=== PATIENT | female | born 1965 | race Caucasian/White ===

== ENCOUNTER 2017-11-20 10:06 | Observation (INO) ==
[2017-11-20] MEDS ORDERED: Pantoprazole Inj 80 MG in Sodium Chlor 0.9% Inj 100 ML IV.CONT SCH (11:00)
[2017-11-20 11:07] LABS: Baso % (Auto) 0.2 % (0.0-2.0); Hematocrit 44.2 % (35.0-46.0); Hemoglobin 15.1 gm/dL (11.6-15.3); Lymph # (Auto) 1.2 th/mm3 (1.0-4.8); Lymph % (Auto) 8.6 % (9.0-44.0); Mean Corpuscular HGB Conc 34.1 % (32.0-36.0); Mean Corpuscular Hemoglobin 30.6 pg (27.0-34.0); Mean Corpuscular Volume 89.6 fL (80.0-100.0); Mean Platelet Volume 7.9 fL (7.0-11.0); Mono # (Auto) 0.4 th/mm3 (0.0-0.9); Mono % (Auto) 2.4 % (0.0-8.0); Neut # (Auto) 12.8 th/mm3 (1.8-7.7); Neut % (Auto) 88.8 % (16.0-70.0); Platelet Count 300 th/mm3 (150-450); Red Blood Count 4.94 mil/mm3 (4.00-5.30); Red Cell Distribution Width 13.2 % (11.6-17.2); White Blood Count 14.4 th/mm3 (4.0-11.0)
--- NOTE | 2017-11-20 11:19 | ED ---
HPI General Chief Complaint: Abdominal Pain Stated Complaint: vomiting Time Seen by Provider: 11/20/17 11:00 Source: patient Mode of arrival: ambulatory Limitations: no limitations History of Present Illness HPI narrative: 52-year-old female with a history of a gastric ulcer presents emergency department complaining of midepigastric pain that is been present since last night. Says that she has a history of a gastric ulcer and believes this may be related. Says that she went out boating yesterday came home 8 epi BMJ sandwich and then started developing her pain. Says her pain is aching and constant. No palliative or provocative factors. The pain is moderate in severity. Says that she feels like his if something is sitting on her epigastric region. Says she has had chills and subjective fevers. No diarrhea. Initially denied any bloody stools but admits to a small amount of dark red stool while in the ED. She denies chronic medical issues medication use. Says she occasionally drinks alcohol and had 3 beers yesterday. Says he drinks about once a month. Denies tobacco use. She has a history of a hysterectomy 12 years ago where mesh was placed. No other abdominal surgeries. Her last EGD was 5 years ago and this was performed because of "food poisoning ". MD complaint: abdominal pain Onset (ago): day(s) (1) Pain Consistency: constant Location: epigastric Severity: similar to previous episodes Quality: cramping, fullness and other (like someone is sitting on her abdomen) Radiation: none Migration to: no migration Relieving factors: nothing Exacerbating factors: nothing Associated symptoms: nausea, vomiting, fever (subjective), chills and hematemesis Related Data Home Medications Medication Instructions Recorded Confirmed No Known Home Medications 11/20/17 11/20/17 Allergies Allergy/AdvReac Type Severity Reaction Status Date / Time hydrocodone AdvReac Intermediate Nausea/Vomi Verified 11/20/17 10:43 ting Review of Systems Except as stated in HPI: all other systems reviewed are negative [facility] Medical History Medical History Esophageal bleed, non-variceal (Acute) H/O: hysterectomy (Acute) Social History Social History Substance History: Active Abuse Smoking Status: Former smoker How Often Do You Have a Drink Containing Alcohol: 2 to 4 times a month Recent Travel in [facility] within the Last 8 Weeks: No Recent Out of Country Travel within the Last 8 Weeks: No Immunization History Tetanus Immunization: Unsure Hx Influenza Vaccine This Season: No Exam Narrative Exam Narrative: GENERAL: Well-developed, well-nourished in mild distress, writhing in bed SKIN: Focused skin assessment warm/dry. HEAD: Atraumatic. Normocephalic. EYES: Pupils equal and round. No scleral icterus. No injection or drainage. ENT: No nasal bleeding or discharge. Mucous membranes pink and moist. NECK: Trachea midline. No JVD. CARDIOVASCULAR: Regular rate and rhythm. No murmur appreciated. RESPIRATORY: No accessory muscle use. Clear to auscultation. Breath sounds equal bilaterally. GASTROINTESTINAL: Abdomen soft, mildly tender in the epigastric region, nondistended. Hepatic and splenic margins not palpable. Rectal exam performed in the presence of nurse Casper-no obvious stool in the rectal vault. Hemoccult negative but scant stool poor MUSCULOSKELETAL: No obvious deformities. No clubbing. No cyanosis. No edema. NEUROLOGICAL: Awake and alert. No obvious cranial nerve deficits. Motor grossly within normal limits. Normal speech. PSYCHIATRIC: Appropriate mood and affect; insight and judgment normal. GI Rectal Exam: visual inspection normal, normal sphincter tone and heme negative stool (Poor sample) Course Initial Documented Vital Signs Temperature 97.7 F 11/20/17 10:18 Pulse Rate 72 11/20/17 10:18 Respiratory Rate 17 11/20/17 10:18 Blood Pressure 171/78 H 11/20/17 10:18 Pulse Oximetry 100 11/20/17 10:18 Last Documented Vital Signs Temperature 97.7 F 11/20/17 10:18 Pulse Rate 75 11/20/17 10:44 Respiratory Rate 20 11/20/17 10:44 Blood Pressure 188/98 H 11/20/17 10:44 Pulse Oximetry 100 11/20/17 10:46 Medical Decision Making MDM Narrative Medical decision making narrative: 52-year-old female presents emergency department for evaluation of nausea, vomiting, dark red stool per rectum, and abdominal pain since yesterday. Says that she has a history of gastric ulcer and her last EGD was 5 years ago. Says this is performed secondary to "food poisoning". Patient says she has had subjective fevers and chills. Says in the previous times when she has had some mild abdominal pain she takes Tums and the pain is resolved. She takes no medication regularly. She denies chest pain , shortness of breath, back pain. She denies diarrhea or constipation. Says she has had some obstipation. Patient takes no blood thinners. Her vital signs are stable. Patient is afebrile. The exam findings demonstrate mild tenderness to the epigastric region without rebound tenderness. Patient writhing in bed upon questioning evaluation. She demonstrates nausea with vomiting bright red blood. Hemoccult negative although scant stool and poor sample. I could not appreciate any active external hemorrhoids. Protonix, GI cocktail, morphine, Zofran administered. Her labs are stable at this time. Patient has mild leukocytosis likely secondary to vomiting. Mild hypokalemia at 3.2, 30meQ KCL IV ordered. Based off a history of physical and difficulty controlling patient's pain, will admit patient for observation. Consider GI consult for possible EGD or further evaluation. I spoke to Dr. Schumacher who agreed to the admission. Differential Diagnosis Differential Diagnosis: Gastritis, gastroenteritis, bleeding ulcer, duodenal ulcer Lab Data Result diagrams: 11/20/17 10:48 11/20/17 10:48 Lab Results 11/20/17 11/20/17 11/20/17 Range/Units 10:48 10:48 10:48 WBC 14.4 H (4.0-11.0) th/mm3 RBC 4.94 (4.00-5.30) mil/mm3 Hgb 15.1 (11.6-15.3) gm/dL Hct 44.2 (35.0-46.0) % MCV 89.6 (80.0-100.0) fL MCH 30.6 (27.0-34.0) pg MCHC 34.1 (32.0-36.0) % RDW 13.2 (11.6-17.2) % Plt Count 300 (150-450) th/mm3 MPV 7.9 (7.0-11.0) fL Neut % (Auto) 88.8 H (16.0-70.0) % Lymph % (Auto) 8.6 L (9.0-44.0) % [place] % (Auto) 2.4 (0.0-8.0) % Eos % (Auto) 0.0 (0.0-4.0) % Baso % (Auto) 0.2 (0.0-2.0) % Neut # (Auto) 12.8 H (1.8-7.7) th/mm3 Lymph # (Auto) 1.2 (1.0-4.8) th/mm3 [place] # (Auto) 0.4 (0.0-0.9) th/mm3 Eos # (Auto) 0.0 (0.0-0.4) th/mm3 Baso # (Auto) 0.0 (0.0-0.2) th/mm3 WBC Differential . Differential Comment Auto diff final PT 10.5 (9.8-11.6) sec INR 1.0 Ratio APTT 18.8 L (24.3-30.1) sec Sodium 142 (136-145) meq/L Potassium 3.2 L (3.5-5.1) meq/L Chloride 105 (98-107) meq/L Carbon Dioxide 19.3 L (21.0-32.0) meq/L Anion Gap 18 H (5-15) meq/L BUN 13 (7-18) mg/dL Creatinine 0.81 (0.50-1.00) mg/dL Estimated GFR 74 L (>89) mL/min Random Glucose 172 H (74-106) mg/dL Calcium 9.8 (8.5-10.1) mg/dL Magnesium 1.7 (1.5-2.5) mg/dL Total Bilirubin 1.0 (0.2-1.0) mg/dL AST 24 (15-37) U/L ALT 37 (10-53) U/L Alkaline Phosphatase 110 (45-117) U/L Total Protein 7.4 (6.4-8.2) g/dL Albumin 4.2 (3.4-5.0) g/dL Lipase 86 (73-393) U/L Serum Alcohol Less than 3 (0-5) mg/dL Blood Type Antibody Screen 11/20/17 Range/Units 10:48 WBC (4.0-11.0) th/mm3 RBC (4.00-5.30) mil/mm3 Hgb (11.6-15.3) gm/dL Hct (35.0-46.0) % MCV (80.0-100.0) fL MCH (27.0-34.0) pg MCHC (32.0-36.0) % RDW (11.6-17.2) % Plt Count (150-450) th/mm3 MPV (7.0-11.0) fL Neut % (Auto) (16.0-70.0) % Lymph % (Auto) (9.0-44.0) % [place] % (Auto) (0.0-8.0) % Eos % (Auto) (0.0-4.0) % Baso % (Auto) (0.0-2.0) % Neut # (Auto) (1.8-7.7) th/mm3 Lymph # (Auto) (1.0-4.8) th/mm3 [place] # (Auto) (0.0-0.9) th/mm3 Eos # (Auto) (0.0-0.4) th/mm3 Baso # (Auto) (0.0-0.2) th/mm3 WBC Differential Differential Comment PT (9.8-11.6) sec INR Ratio APTT (24.3-30.1) sec Sodium (136-145) meq/L Potassium (3.5-5.1) meq/L Chloride (98-107) meq/L Carbon Dioxide (21.0-32.0) meq/L Anion Gap (5-15) meq/L BUN (7-18) mg/dL Creatinine (0.50-1.00) mg/dL Estimated GFR (>89) mL/min Random Glucose (74-106) mg/dL Calcium (8.5-10.1) mg/dL Magnesium (1.5-2.5) mg/dL Total Bilirubin (0.2-1.0) mg/dL AST (15-37) U/L ALT (10-53) U/L Alkaline Phosphatase (45-117) U/L Total Protein (6.4-8.2) g/dL Albumin (3.4-5.0) g/dL Lipase (73-393) U/L Serum Alcohol (0-5) mg/dL Blood Type O Positive Antibody Screen Negative Discharge Plan Discharge Disposition Patient Disposition: 30 Still Patient Discharge Condition Condition: Stable Discharge Details Discharge Problem: Gastritis, Hematemesis with nausea, Hematochezia Physicians Team ED Provider: Izzy Alva ED Midlevel Provider: Laura Lynn Primary Care Provider: Primary Care Tania Chang Attending Provider: Jhony Schumacher Status ED Status: Admitted Observation Patient
[2017-11-20 11:20] LABS: Albumin 4.2 g/dL (3.4-5.0); Anion Gap 18 meq/L (5-15); Aspartate Aminotransferase 24 U/L (15-37); Blood Urea Nitrogen 13 mg/dL (7-18); Calcium 9.8 mg/dL (8.5-10.1); Carbon Dioxide 19.3 meq/L (21.0-32.0); Chloride 105 meq/L (98-107); Glomerular Filtration Rate 74 mL/min (>89); Glucose,Random 172 mg/dL (74-106); Lipase 86 U/L (73-393); Magnesium 1.7 mg/dL (1.5-2.5); Potassium 3.2 meq/L (3.5-5.1); Sodium 142 meq/L (136-145)
[2017-11-20] MEDS ORDERED: Aluminum/Magnesium/Simethacone Susp 30 ML UDC PO ONE (11:20)
[2017-11-20] MEDS ORDERED: Sod Chloride 0.9% Inj 1,000 ML IV.SIG ONE (11:20)
[2017-11-20 11:21] LABS: Activated Partial Thrombo Time 18.8 sec (24.3-30.1); Alanine Aminotransferase 37 U/L (10-53); Prothrombin Time 10.5 sec (9.8-11.6)
[2017-11-20 11:23] LABS: Alkaline Phosphatase 110 U/L (45-117); Total Protein 7.4 g/dL (6.4-8.2)
[2017-11-20] MEDS ORDERED: Morphine Sulfate Inj 2 MG/ML Vial IV.PUSH ONE (12:31)
[2017-11-20] MEDS ORDERED: Morphine Inj 4 MG/ML Vial IV.PUSH ONE (13:00)
[2017-11-20] MEDS: Potassium Chlor 10 mEq Premix 10 MEQ/100 ML PIGGYBACK IV.SIG SCH ×3 (13:29→16:25)
[2017-11-20] MEDS ORDERED: Naloxone Inj 0.4 MG/ML Vial IV.PUSH PRN (13:41)
--- NOTE | 2017-11-20 13:54 | P.HPIM ---
History of Present Illness Service: [facility]/HEP Primary Care Physician: No Primary Care Physician Chief Complaint: Abdominal pain and vomiting History of Present Illness: Patient is a 52-year-old female who has a history of gastric ulcers presented to the emergency department complaining of abdominal pain in the midepigastric region it has been present since last night. She states that she has a history of gastric ulcer and believes this may be related. She states that she went out boating yesterday and came home at about 8 PM had a peanut butter and jelly sandwich and started developing pain. She states she has pain that is aching and constant. No palliative or worsening factors. Moderate in severity. She states she tried some Tums for this. States that it is like "something is sitting on her epigastric region" has history of chills and some fever she states denies any diarrhea also had some bloody stools said some hematemesis. States she drank 3 beers yesterday has only occasional alcoholic beverage. Denies tobacco had a hysterectomy with mesh. Had an EGD about 5 years ago for food poisoning. Patient had some nausea and some vomiting questionable fever subjective and some chills and hematemesis and hematochezia Patient will be placed in observation will consult gastroenterology. And give her a clear liquid diet continue on Protonix drip Inpatient Certification: I certify that the inpatient services were ordered in accordance with Medicare regulations governing the order. This includes certification that hospital inpatient services are reasonable and necessary and in the case of services not specified as inpatient-only under 42 CFR 419.22(n), that they are appropriately provided as inpatient services in accordance to with the 2-midnight benchmark under 43 CFR 412.3(e) Review of Systems All other systems reviewed negative except as stated in HPI Constitutional: Reports fever(s), Denies anorexia, Denies body ache(s), Denies chills, Denies daytime sleepiness, Denies fatigue, Denies headache(s), Denies malaise, Denies night sweats Eyes: Denies blind spots, Denies blurry vision, Denies discharge, Denies dry eyes, Denies pain, Denies requires corrective lenses Ears, Nose, Mouth, and Throat: Denies abnormal hearing, Denies dental pain, Denies ear pain, Denies lip swelling, Denies nasal discharge, Denies nose pain, Denies ringing in the ears, Denies throat swelling Cardiovascular: Denies chest pain, Denies fainting, Denies irregular heart rhythm, Denies lightheadedness, Denies rapid, pounding, or irregular heartbeat, Denies shortness of breath with activity, Denies shortness of breath causing sudden awakening Respiratory: Denies change in phlegm color, Denies excessive phlegm production, Denies shortness of breath, Denies wheezing Gastrointestinal: Reports abdominal pain, Reports bright, red blood in stools, Reports heartburn, Reports nausea, Reports vomiting, Reports vomiting blood Genitourinary: Denies abnormal periods, Denies bleeding between periods, Denies difficulty urinating, Denies genital itching, Denies nipple discharge, Denies pelvic pain, Denies urinary incontinence, Denies vaginal odor Musculoskeletal: Denies abnormal walking, Denies deformity, Denies loss of height, Denies radiating pain into limb Skin/Breast: Denies acne, Denies breast pain, Denies change in skin color, Denies hair loss, Denies non-healing lesions, Denies skin ulcer, Denies yellowing of the skin Neurologic: Denies abnormal hearing, Denies abnormal walking, Denies dizziness, Denies localized weakness, Denies other visual disturbances, Denies seizure- like activity, Denies tingling/numbness/burning sensations Psychiatric: Denies abnormal sleep pattern, Denies lack of enjoyment, Denies seeing things others do not see, Denies tactile hallucinations, Denies thoughts of hurting/killing yourself Endocrine: Denies cold intolerance, Denies increased hunger, Denies rapid, pounding, or irregular heartbeat Hematologic/Lymphatic: Denies easy bleeding, Denies easy bruising, Denies enlarged lymph nodes Allergic/Immunologic: Denies GI upset with certain foods, Denies hives, Denies seasonal runny nose, Denies throat swelling PMF - History History Provided By: Patient - Medical History Medical History: Medical History (Last Updated 11/20/17 @ 13:48 by Jhony Schumacher DO) H/O: hysterectomy (Acute) Esophageal bleed, non-variceal (Acute) - Family History Family History: Family History (Last Updated 11/20/17 @ 13:48 by Jhony Schumacher DO) Other Family history of hypertension - Tobacco History Second Hand Smoke Exposure: No Tobacco Use In Past 30 Days: No Smoking Status: Former smoker - Alcohol History How Often Do You Have a Drink Containing Alcohol: 2 to 4 times a month - Substance Use History Substance History: Active Abuse - Travel History History of Recent Travel: No Recent Travel in the [place] Within the Last 8 Weeks: No Recent Travel Out of the Country Within the Last 8 Weeks: No - Immunization History Tetanus Immunization: Unsure Hx Influenza Vaccine This Season: No Medications and Allergies Active Medications: Active Medications Acetaminophen (Tylenol) 650 mg PO Q4H PRN PRN Reason: Temp > 100.4 Acetaminophen (Tylenol) 650 mg PO Q6HR PRN PRN Reason: PAIN SCALE 1 TO 2 Al Hydroxide/Mg Hydroxide (Milk Of Magnesia Liq) 30 ml PO Q12H PRN PRN Reason: Mild Constipation Bisacodyl (Dulcolax Supp) 10 mg RECTAL DAILY PRN PRN Reason: SEVERE CONSITIPATION Pantoprazole Sodium 80 mg/ (Sodium Chloride) 100 mls @ 10 mls/hr IV.CONT CONT MARIANNA Last Admin: 11/20/17 12:18 Dose: 10 mls/hr Potassium Chloride (Kcl 10 Meq Premix Inj) 10 meq in 100 mls @ 100 mls/hr IV.SIG Q1H MARIANNA Stop: 11/20/17 16:14 Last Admin: 11/20/17 13:29 Dose: 50 mls/hr Potassium Chloride/Dextrose/Sod Cl (D5w/1/2ns + Kcl 20 Meq Inj) 1,000 mls @ 100 mls/hr IV.CONT .Q10H MARIANNA Lactulose (Lactulose Liq) 30 ml PO DAILY PRN PRN Reason: SEVERE CONSITIPATION Metoclopramide HCl (Reglan Inj) 5 mg IV.PUSH Q6HR PRN; Protocol PRN Reason: NAUSEA OR VOMITING Morphine Sulfate (Morphine Inj) 2 mg IV.PUSH Q3H PRN PRN Reason: PAIN 3-5; IF UABLE TO TAKE PO Morphine Sulfate (Morphine Inj) 4 mg IV.PUSH Q3H PRN PRN Reason: PAIN 6-10;IF UNABLE TO TAKE PO Naloxone HCl (Narcan Inj) 0.4 mg IV.PUSH UNSCH PRN PRN Reason: SEE LABEL COMMENTS Ondansetron HCl (Zofran Inj) 4 mg IV.PUSH Q6H PRN PRN Reason: NAUSEA OR VOMITING Oxycodone/Acetaminophen (Percocet 10/325 Mg) 1 tab PO Q6H PRN PRN Reason: PAIN SCALE 6 TO 10 Oxycodone/Acetaminophen (Percocet 5/325 Mg) 1 tab PO Q6H PRN PRN Reason: PAIN SCALE 3 TO 5 Senna/Docusate Sodium (Roxanne-Colace) 1 tab PO BID [facility] Sennosides (Senokot) 17.2 mg PO Q12H PRN PRN Reason: Moderate Constipation Sodium Chloride (Ns Flush) 2 ml IV.FLUSH PRN PRN PRN Reason: FLUSH AFTER USING IV ACCESS Sodium Chloride (Ns Flush) 2 ml IV.FLUSH PRN PRN PRN Reason: FLUSH AFTER USING IV ACCESS Sodium Chloride (Ns Flush) 2 ml IV.FLUSH BID MARIANNA Allergies Allergy/AdvReac Type Severity Reaction Status Date / Time hydrocodone AdvReac Intermediate Nausea/Vomi Verified 11/20/17 10:43 ting Home Medications Medication Instructions Recorded Confirmed Type No Known Home Medications 11/20/17 11/20/17 History Exam Vital signs: Vital Signs 11/20/17 10:18 11/20/17 10:44 11/20/17 10:46 Temperature 97.7 F Pulse Rate 72 75 Respiratory Rate 17 20 Blood Pressure 171/78 H 188/98 H Pulse Oximetry 100 99 100 Intake & Output 11/19/17 11/20/17 11/20/17 18:59 06:59 18:59 Intake Total 1000 / 1000 Balance 1000 / 1000 Weight 65.771 kg Intake: IV 1000 / 1000 NS Inj 1,000 ML @ Wide Open IV. 1000 / 1000 SIG BOLUS ONE Rx#:[id number] Narrative: GENERAL: Awake alert and oriented 3 talkative and cooperative appears to be in no acute distress SKIN: Warm and dry. HEAD: Atraumatic. Normocephalic. EYES: Pupils equal and round. No scleral icterus. No injection or drainage. ENT: No nasal bleeding or discharge. Mucous membranes pink and moist. NECK: Trachea midline. No JVD. CARDIOVASCULAR: Regular rate and rhythm. S1-S2 no S3 or S4 no heave or thrill or rub or gallop RESPIRATORY: No accessory muscle use. Clear to auscultation. Breath sounds equal bilaterally. GASTROINTESTINAL: Abdomen soft, non-tender, nondistended. Hepatic and splenic margins not palpable. MUSCULOSKELETAL: Extremities without clubbing, cyanosis, or edema. No obvious deformities. NEUROLOGICAL: Awake and alert. No obvious cranial nerve deficits. Motor grossly within normal limits. Five out of 5 muscle strength in the arms and legs. Normal speech. PSYCHIATRIC: Appropriate mood and affect; insight and judgment normal. Results - Labs CBC & Chem 7: 11/20/17 10:48 11/20/17 10:48 Labs: Short CBC 11/20/17 Range/Units 10:48 WBC 14.4 H (4.0-11.0) th/mm3 Hgb 15.1 (11.6-15.3) gm/dL Hct 44.2 (35.0-46.0) % Plt Count 300 (150-450) th/mm3 BMP 11/20/17 10:48 Sodium 142 Potassium 3.2 L Chloride 105 Carbon Dioxide 19.3 L BUN 13 Creatinine 0.81 Calcium 9.8 Liver Function 11/20/17 Range/Units 10:48 Total Bilirubin 1.0 (0.2-1.0) mg/dL AST 24 (15-37) U/L ALT 37 (10-53) U/L Alkaline Phosphatase 110 (45-117) U/L Albumin 4.2 (3.4-5.0) g/dL Caprini VTE Risk Assessment Caprini VTE Risk Assessment: No/Low Risk (score <= 1) VTE Pharmacological Exception Reason: Hemorrhage Caprini Risk Assessment Model: Point Value = 1 Point Value = 2 Point Value = 3 Point Value = 5 Age 41-60 Minor surgery BMI > 25 kg/m2 Swollen legs Varicose veins or History of unexplained or recurrent spontaneous Oral contraceptives or hormone replacement Sepsis (< 1 month) Serious lung disease, including pneumonia (< 1 month) Abnormal pulmonary function Acute myocardial infarction Congestive heart failure (< 1 month) History of inflammatory bowel disease Medical patient at bed rest Age 61-74 Arthroscopic surgery Major open surgery (> 45 min) Laparoscopic surgery (> 45 min) Malignancy Confined to bed (> 72 hours) Immobilizing plaster cast Central venous access Age >= 75 History of VTE Family history of VTE Factor V Leiden Prothrombin [id number] Lupus anticoagulant Anticardiolipin antibodies Elevated serum homocysteine Heparin-induced thrombocytopenia Other congenital or acquired thrombophilia Stroke (< 1 month) Elective arthroplasty Hip, pelvis, or leg fracture Acute spinal cord injury (< 1 month) Prophylaxis Regimen: Total Risk Factor Score Risk Level Prophylaxis Regimen 0-1 Low Early ambulation 2 Moderate Order ONE of the following: *Sequential Compression Device (SCD) *Heparin 5000 units SQ BID 3-4 Higher Order ONE of the following medications: *Heparin 5000 units SQ TID *Enoxaparin/Lovenox 40 mg SQ daily (WT < 150 kg, CrCl > 30 mL/min) *Enoxaparin/Lovenox 30 mg SQ daily (WT < 150 kg, CrCl > 10-29 mL/min) *Enoxaparin/Lovenox 30 mg SQ BID (WT < 150 kg, CrCl > 30 mL/min) AND/OR *Sequential Compression Device (SCD) 5 or more Highest Order ONE of the following medications: *Heparin 5000 units SQ TID (Preferred with Epidurals) *Enoxaparin/Lovenox 40 mg SQ daily (WT < 150 kg, CrCl > 30 mL/min) *Enoxaparin/Lovenox 30 mg SQ daily (WT < 150 kg, CrCl > 10-29 mL/min) *Enoxaparin/Lovenox 30 mg SQ BID (WT < 150 kg, CrCl > 30 mL/min) AND *Sequential Compression Device (SCD) Assessment and Plan - Plan Hematemesis will trend CBCs and check hemoglobin and hematocrit Consult gastroenterology Continue on Protonix drip Possible ulcers May require EGD versus colonoscopy Continue clear liquid diet Continue IV fluids Hypokalemia will replace with IV replacement due to nausea vomiting Leukocytosis suspect secondary to nausea vomiting Hematemesis will consult gastroenterology with history of upper GI bleeding in the past Continue on Protonix Tobacco abuse recommend cessation Alcohol abuse recommend cessation DVT prophylaxis with SCDs and THEODORA hose due to GI bleeding Possible gastritis continue on Protonix We will get a CAT scan Hematemesis with nausea and vomiting continue on antiemetics and pain medications We will get a CAT scan Hematochezia suspect secondary to upper GI bleeding Hypokalemia will replace Continue with GI and DVT prophylaxis We will check a.m. labs Increase activity Code Status: Full code Discussed Condition With: RN and ER and patient Discharge Planning: Pending GI clearance and improvement of nausea vomiting
[2017-11-20] MEDS ORDERED: Bisacodyl 10 MG Supp RECTAL PRN (15:00)
[2017-11-20] MEDS ORDERED: Morphine Inj 4 MG/ML Vial IV.PUSH PRN (15:00)
[2017-11-20] MEDS ORDERED: Acetaminophen 325 MG Tablet PO PRN ×2 (15:00)
[2017-11-20] MEDS ORDERED: oxyCODONE/Acetaminophen 10/325 Tablet PO PRN (15:00)
--- NOTE | 2017-11-20 15:19 | CT ---
EXAM DATE: 11/20/2017 3:09 PM EDT AGE/SEX: 52 years / Female INDICATIONS: Patient states she has a bleeding ulcer, abdominal and epigastric pain. CLINICAL DATA: This is the patient's initial encounter. Patient reports that signs and symptoms have been present for 1 day and indicates a pain score of 10/10. MEDICAL/SURGICAL HISTORY: None. Hysterectomy. ORAL CONTRAST: No oral contrast ingested. RADIATION DOSE: 6.57 CTDI (mGy) COMPARISON: [facility] [place], CT ABDOMEN & PELVIS W CONTRAST, 12/26/2011. . TECHNIQUE: Multiple contiguous axial images were obtained through the abdomen and pelvis following b olus infusion of 94 ml Omnipaque 350 (iohexol) nonionic water-soluble contrast as a single exam dos e. No oral contrast ingested. Using automated exposure control and adjustment of the mA and/or kV ac cording to patient size, radiation dose was kept as low as reasonably achievable to obtain optimal di agnostic quality images. DICOM format image data is available electronically for review and comparis on. FINDINGS: Lower Lungs: Small hiatal hernia. The visualized lower lungs are clear. Liver: The liver has a homogeneous density without space-occupying lesion. There is no dilation of th e biliary tree. Spleen: Homogeneous density without enlargement. Pancreas: Unremarkable without mass or calcification. Kidneys: Normal in size and shape. No evidence of mass or hydronephrosis. Adrenal Glands: Unremarkable. Aorta: The aorta and proximal iliac vessels are grossly unremarkable without aneurysmal dilation. Bowel/Mesentery: A few scattered colonic diverticuli without acute inflammation. Appendix is normal by CT criteria. The bowel loops are grossly unremarkable. The cecum and sigmoid colon have a normal c onfiguration. Abdominal Wall: Intact. Retroperitoneum: No evidence of adenopathy in the retrocrural, para-aortic, or deep pelvic regions. Bladder: Contours are smooth. Reproductive Organs: No abnormal masses or calcifications seen. Inguinal: The inguinal region is unremarkable without evidence of adenopathy. Bony Structures: Unremarkable. CONCLUSION: 1. Mild colonic diverticulosis. 2. Small hiatal hernia. 3. No acute abnormality. Electronically signed by: Jesús Larry MD 11/20/2017 3:18 PM EDT
--- NOTE | 2017-11-20 15:41 | P.CONGI ---
History of Present Illness Consult date: 11/20/17 Consult reason: Epigastric pain, hematemesis Chief complaint: GI bleed hematemesis History of Present Illness: This is a 52 yo F with stated history of gastric ulcers. Pt presents to the ER today with complaints of epigastric pain, nausea, and vomiting. Reports abdominal pain began yesterday afternoon, described as aching, pain is constant , located in epigastric area and denies any radiation of the pain. Denies any noticeable aggravating or alleviating factors. States pain has been getting worse, especially since 3 am when she began vomiting. Initial emesis was BRB but states now seems to just have small pieces of BRB mixed in. Denies coffee ground emesis. Associated acid reflux and heartburn, has been taking Tums increasingly frequent with no relief of symptoms. Denies any changes in bowel habits but has not had a BM since the vomiting began. Last EGD in [address] Ray revealed severe esophagitis and duodenitis. Pt reports taking [employer] Headache medicine approximately once a week. Occasional alcohol. Denies nicotine use but does admit to marijuana use. Does not take any blood thinners. Has never had colonoscopy. <Rosie Espino - Last Filed: 11/20/17 15:30> Review of Systems Constitutional: Denies weight loss Cardiovascular: Denies chest pain Gastrointestinal: Reports abdominal pain, Reports heartburn, Reports nausea, Reports vomiting, Reports vomiting blood, Denies black, tarry stools, Denies bright, red blood in stools, Denies coffee ground vomit <Roise Espino - Last Filed: 11/20/17 15:30> [facility] - History History Provided By: Patient - Medical History Medical History: Medical History (Last Updated 11/20/17 @ 13:48 by Jhony Schumacher DO) H/O: hysterectomy (Acute) Esophageal bleed, non-variceal (Acute) - Family History Family History: Family History (Last Updated 11/20/17 @ 13:48 by Jhony Schumacher DO) Other Family history of hypertension - Tobacco History Second Hand Smoke Exposure: No Tobacco Use In Past 30 Days: No Smoking Status: Former smoker - Alcohol History How Often Do You Have a Drink Containing Alcohol: 2 to 4 times a month - Substance Use History Substance History: Active Abuse - Travel History History of Recent Travel: No Recent Travel in the [place] Within the Last 8 Weeks: No Recent Travel Out of the Country Within the Last 8 Weeks: No - Immunization History Tetanus Immunization: Unsure Hx Influenza Vaccine This Season: No <Rosie Espino - Last Filed: 11/20/17 15:30> - Medical History Medical History: Medical History (Last Updated 11/20/17 @ 13:48 by Jhony Schumacher DO) H/O: hysterectomy (Acute) Esophageal bleed, non-variceal (Acute) - Family History Family History: Family History (Last Updated 11/20/17 @ 13:48 by Jhony Schumacher DO) Other Family history of hypertension <Romina Acuna - Last Filed: 11/20/17 17:47> Medications and Allergies Active Medications: Active Medications Acetaminophen (Tylenol) 650 mg PO Q4H PRN PRN Reason: Temp > 100.4 Acetaminophen (Tylenol) 650 mg PO Q6HR PRN PRN Reason: PAIN SCALE 1 TO 2 Al Hydroxide/Mg Hydroxide (Milk Of Magnesia Liq) 30 ml PO Q12H PRN PRN Reason: Mild Constipation Bisacodyl (Dulcolax Supp) 10 mg RECTAL DAILY PRN PRN Reason: SEVERE CONSITIPATION Pantoprazole Sodium 80 mg/ (Sodium Chloride) 100 mls @ 10 mls/hr IV.CONT CONT MARIANNA Last Admin: 11/20/17 12:18 Dose: 10 mls/hr Potassium Chloride (Kcl 10 Meq Premix Inj) 10 meq in 100 mls @ 100 mls/hr IV.SIG Q1H MARIANNA Stop: 11/20/17 16:14 Last Admin: 11/20/17 13:29 Dose: 50 mls/hr Potassium Chloride/Dextrose/Sod Cl (D5w/1/2ns + Kcl 20 Meq Inj) 1,000 mls @ 100 mls/hr IV.CONT .Q10H MARIANNA Lactulose (Lactulose Liq) 30 ml PO DAILY PRN PRN Reason: SEVERE CONSITIPATION Metoclopramide HCl (Reglan Inj) 5 mg IV.PUSH Q6HR PRN; Protocol PRN Reason: SEE LABEL COMMENTS Morphine Sulfate (Morphine Inj) 2 mg IV.PUSH Q3H PRN PRN Reason: PAIN 3-5; IF UABLE TO TAKE PO Morphine Sulfate (Morphine Inj) 4 mg IV.PUSH Q3H PRN PRN Reason: PAIN 6-10;IF UNABLE TO TAKE PO Naloxone HCl (Narcan Inj) 0.4 mg IV.PUSH UNSCH PRN PRN Reason: SEE LABEL COMMENTS Ondansetron HCl (Zofran Inj) 4 mg IV.PUSH Q6H PRN PRN Reason: NAUSEA OR VOMITING Oxycodone/Acetaminophen (Percocet 10/325 Mg) 1 tab PO Q6H PRN PRN Reason: PAIN SCALE 6 TO 10 Oxycodone/Acetaminophen (Percocet 5/325 Mg) 1 tab PO Q6H PRN PRN Reason: PAIN SCALE 3 TO 5 Senna/Docusate Sodium (Roxanne-Colace) 1 tab PO BID [facility] Sennosides (Senokot) 17.2 mg PO Q12H PRN PRN Reason: Moderate Constipation Sodium Chloride (Ns Flush) 2 ml IV.FLUSH PRN PRN PRN Reason: FLUSH AFTER USING IV ACCESS Sodium Chloride (Ns Flush) 2 ml IV.FLUSH PRN PRN PRN Reason: FLUSH AFTER USING IV ACCESS Sodium Chloride (Ns Flush) 2 ml IV.FLUSH BID [facility] <Rosie Espino - Last Filed: 11/20/17 15:30> Active Medications: Active Medications Acetaminophen (Tylenol) 650 mg PO Q4H PRN PRN Reason: Temp > 100.4 Acetaminophen (Tylenol) 650 mg PO Q6HR PRN PRN Reason: PAIN SCALE 1 TO 2 Al Hydroxide/Mg Hydroxide (Milk Of Magnesia Liq) 30 ml PO Q12H PRN PRN Reason: Mild Constipation Bisacodyl (Dulcolax Supp) 10 mg RECTAL DAILY PRN PRN Reason: SEVERE CONSITIPATION Pantoprazole Sodium 80 mg/ (Sodium Chloride) 100 mls @ 10 mls/hr IV.CONT CONT [facility] Last Admin: 11/20/17 12:18 Dose: 10 mls/hr Potassium Chloride/Dextrose/Sod Cl (D5w/1/2ns + Kcl 20 Meq Inj) 1,000 mls @ 100 mls/hr IV.CONT .Q10H [facility] Last Admin: 11/20/17 16:04 Dose: 100 mls/hr Lactulose (Lactulose Liq) 30 ml PO DAILY PRN PRN Reason: SEVERE CONSITIPATION Metoclopramide HCl (Reglan Inj) 5 mg IV.PUSH Q6HR PRN; Protocol PRN Reason: SEE LABEL COMMENTS Last Admin: 11/20/17 16:08 Dose: 5 mg Morphine Sulfate (Morphine Inj) 2 mg IV.PUSH Q3H PRN PRN Reason: PAIN 3-5; IF UABLE TO TAKE PO Morphine Sulfate (Morphine Inj) 4 mg IV.PUSH Q3H PRN PRN Reason: PAIN 6-10;IF UNABLE TO TAKE PO Last Admin: 11/20/17 17:38 Dose: 4 mg Naloxone HCl (Narcan Inj) 0.4 mg IV.PUSH UNSCH PRN PRN Reason: SEE LABEL COMMENTS Ondansetron HCl (Zofran Inj) 4 mg IV.PUSH Q6H PRN PRN Reason: NAUSEA OR VOMITING Oxycodone/Acetaminophen (Percocet 10/325 Mg) 1 tab PO Q6H PRN PRN Reason: PAIN SCALE 6 TO 10 Oxycodone/Acetaminophen (Percocet 5/325 Mg) 1 tab PO Q6H PRN PRN Reason: PAIN SCALE 3 TO 5 Senna/Docusate Sodium (Roxanne-Colace) 1 tab PO BID MARIANNA Sennosides (Senokot) 17.2 mg PO Q12H PRN PRN Reason: Moderate Constipation Sodium Chloride (Ns Flush) 2 ml IV.FLUSH PRN PRN PRN Reason: FLUSH AFTER USING IV ACCESS Sodium Chloride (Ns Flush) 2 ml IV.FLUSH PRN PRN PRN Reason: FLUSH AFTER USING IV ACCESS Sodium Chloride (Ns Flush) 2 ml IV.FLUSH BID MARIANNA <Romina Acuna A - Last Filed: 11/20/17 17:47> Allergies Allergy/AdvReac Type Severity Reaction Status Date / Time hydrocodone AdvReac Intermediate Nausea/Vomi Verified 11/20/17 10:43 ting Home Medications Medication Instructions Recorded Confirmed Type No Known Home Medications 11/20/17 11/20/17 History Exam Vital signs: Vital Signs 11/20/17 10:18 11/20/17 10:44 11/20/17 10:46 Temperature 97.7 F Pulse Rate 72 75 Respiratory Rate 17 20 Blood Pressure 171/78 H 188/98 H Pulse Oximetry 100 99 100 11/20/17 14:20 Temperature Pulse Rate 72 Respiratory Rate 20 Blood Pressure 168/79 H Pulse Oximetry 99 Intake & Output 11/19/17 11/20/17 11/20/17 18:59 06:59 18:59 Intake Total 1000 / 1000 Balance 1000 / 1000 Weight 65.771 kg Intake: IV 1000 / 1000 NS Inj 1,000 ML @ Wide Open IV. 1000 / 1000 SIG BOLUS ONE Rx#:[id number] - Constitutional no acute distress - Routine HEENT Exam Head: Present: normocephalic, atraumatic - Routine Respiratory Exam Present: CTA bilaterally. Absent: accessory muscle use - Routine Cardiovascular Exam Present: RRR - Routine Abdominal Exam Present: soft, normoactive bowel sounds, tenderness (epigastric tenderness). Absent: distended, rebound, guarding, firm, rigid - Routine Skin Exam Present: dry, warm - Routine Neurological Exam Present: alert, oriented X3 <Rosie Espino - Last Filed: 11/20/17 15:30> Vital signs: Vital Signs 11/20/17 10:18 11/20/17 10:44 11/20/17 10:46 Temperature 97.7 F Pulse Rate 72 75 Respiratory Rate 17 20 Blood Pressure 171/78 H 188/98 H Pulse Oximetry 100 99 100 11/20/17 14:20 11/20/17 16:00 Temperature 99.1 F Pulse Rate 72 103 H Respiratory Rate 20 16 Blood Pressure 168/79 H 121/65 Pulse Oximetry 99 95 Intake & Output 11/19/17 11/20/17 11/20/17 18:59 06:59 18:59 Intake Total 1150 / 1150 Balance 1150 / 1150 Weight 65.771 kg Intake: IV 1150 / 1150 KCl 10 mEq Premix Inj 10 meq In 150 / 150 100 ml @ 100 mls/hr IV.SIG Q1H MARIANNA Rx#:[id number] NS Inj 1,000 ML @ Wide Open IV. 1000 / 1000 SIG BOLUS ONE Rx#:[id number] <Romina Acuna - Last Filed: 11/20/17 17:47> Results - Labs CBC & Chem 7: 11/20/17 10:48 11/20/17 10:48 Labs: Laboratory Results - last 24 hr 11/20/17 11/20/17 11/20/17 10:48 10:48 10:48 WBC 14.4 H RBC 4.94 Hgb 15.1 Hct 44.2 MCV 89.6 MCH 30.6 MCHC 34.1 RDW 13.2 Plt Count 300 MPV 7.9 Neut % (Auto) 88.8 H Lymph % (Auto) 8.6 L [place] % (Auto) 2.4 Eos % (Auto) 0.0 Baso % (Auto) 0.2 Neut # (Auto) 12.8 H Lymph # (Auto) 1.2 [place] # (Auto) 0.4 Eos # (Auto) 0.0 Baso # (Auto) 0.0 WBC Differential . Differential Comment Auto diff final PT 10.5 INR 1.0 APTT 18.8 L Sodium 142 Potassium 3.2 L Chloride 105 Carbon Dioxide 19.3 L Anion Gap 18 H BUN 13 Creatinine 0.81 Estimated GFR 74 L Random Glucose 172 H Calcium 9.8 Magnesium 1.7 Total Bilirubin 1.0 AST 24 ALT 37 Alkaline Phosphatase 110 Total Protein 7.4 Albumin 4.2 Lipase 86 Serum Alcohol Less than 3 Blood Type Antibody Screen 11/20/17 10:48 WBC RBC Hgb Hct MCV MCH MCHC RDW Plt Count MPV Neut % (Auto) Lymph % (Auto) [place] % (Auto) Eos % (Auto) Baso % (Auto) Neut # (Auto) Lymph # (Auto) [place] # (Auto) Eos # (Auto) Baso # (Auto) WBC Differential Differential Comment PT INR APTT Sodium Potassium Chloride Carbon Dioxide Anion Gap BUN Creatinine Estimated GFR Random Glucose Calcium Magnesium Total Bilirubin AST ALT Alkaline Phosphatase Total Protein Albumin Lipase Serum Alcohol Blood Type O Positive Antibody Screen Negative - Imaging Impressions Abdomen/Pelvis CT 11/20/17 13:04 CONCLUSION: 1. Mild colonic diverticulosis. 2. Small hiatal hernia. 3. No acute abnormality. <Rosie Espino - Last Filed: 11/20/17 15:30> - Labs CBC & Chem 7: 11/20/17 17:00 11/20/17 10:48 Labs: Laboratory Results - last 24 hr 11/20/17 11/20/17 11/20/17 10:48 10:48 10:48 WBC 14.4 H RBC 4.94 Hgb 15.1 Hct 44.2 MCV 89.6 MCH 30.6 MCHC 34.1 RDW 13.2 Plt Count 300 MPV 7.9 Neut % (Auto) 88.8 H Lymph % (Auto) 8.6 L [place] % (Auto) 2.4 Eos % (Auto) 0.0 Baso % (Auto) 0.2 Neut # (Auto) 12.8 H Lymph # (Auto) 1.2 [place] # (Auto) 0.4 Eos # (Auto) 0.0 Baso # (Auto) 0.0 WBC Differential . Differential Comment Auto diff final PT 10.5 INR 1.0 APTT 18.8 L Sodium 142 Potassium 3.2 L Chloride 105 Carbon Dioxide 19.3 L Anion Gap 18 H BUN 13 Creatinine 0.81 Estimated GFR 74 L Random Glucose 172 H Calcium 9.8 Magnesium 1.7 Total Bilirubin 1.0 AST 24 ALT 37 Alkaline Phosphatase 110 Total Protein 7.4 Albumin 4.2 Lipase 86 Serum Alcohol Less than 3 Blood Type Antibody Screen 11/20/17 11/20/17 10:48 17:00 WBC RBC Hgb 13.7 Hct 40.7 MCV MCH MCHC RDW Plt Count MPV Neut % (Auto) Lymph % (Auto) [place] % (Auto) Eos % (Auto) Baso % (Auto) Neut # (Auto) Lymph # (Auto) [place] # (Auto) Eos # (Auto) Baso # (Auto) WBC Differential Differential Comment PT INR APTT Sodium Potassium Chloride Carbon Dioxide Anion Gap BUN Creatinine Estimated GFR Random Glucose Calcium Magnesium Total Bilirubin AST ALT Alkaline Phosphatase Total Protein Albumin Lipase Serum Alcohol Blood Type O Positive Antibody Screen Negative - Imaging Impressions Abdomen/Pelvis CT 11/20/17 13:04 CONCLUSION: 1. Mild colonic diverticulosis. 2. Small hiatal hernia. 3. No acute abnormality. <Romina Acuna - Last Filed: 11/20/17 17:47> Assessment and Plan - Plan Assessment: - Epigastric pain with reports of hematemesis with known history of severe esophagitis Epigastric pain began yesterday afternoon, aching, constant pain, denies radiation, denies aggravating or alleviating factors. Took Tums with no relief. Associated nausea and vomiting that began at 3 am, initially hematemesis but reports now just small amounts of BRB mixed in. Denies coffee ground emesis. Denies changes in bowel habits but has not had BM since vomiting began. H/H stable 15.1/44.2 Occasional ETOH. Denies nicotine use. Admits to marijuana. Takes [facility] headache medicine (unsure if this is Acetaminophen or Ibuprofen) approximately once a week. Not on blood thinners EGD (july 2012) --> Severe esophagitis LA grade 4, duodenitis Plan: EGD tomorrow Obtain consent OK for clear liquids today NPO after MN Protonix Monitor H/H Electrolyte replacement per attending Further recommendations based on findings of above Pt has been seen and examined by myself and Dr. Acuna and this note is written on his behalf <Rosie Espino - Last Filed: 11/20/17 15:30> - Attending Attestation Seen and examined, plan as above, EGD explained to the patient . Will proceed in AM Thank you for the consult. <Romina Acuna - Last Filed: 11/20/17 17:47>
[2017-11-20] MEDS: KCL 20 mEq/D5W/NaCl 0.45% Inj 1,000 ML IV.CONT SCH (16:04)
[2017-11-20 17:23] LABS: Hematocrit 40.7 % (35.0-46.0); Hemoglobin 13.7 gm/dL (11.6-15.3)
[2017-11-20] MEDS: Morphine Inj 4 MG/ML Vial IV.PUSH PRN (17:38)
[2017-11-20 21:58] LABS: Hematocrit 40.2 % (35.0-46.0); Hemoglobin 13.7 gm/dL (11.6-15.3)
[2017-11-20] MEDS: Senna/Docusate Sodium 8.6/50 MG Tablet PO SCH (22:44)
[2017-11-21] MEDS ORDERED: Chlorhexidine Gluconate 2% 1 Pack (2 Cloths) TOPICAL SCH (06:00)
[2017-11-21] MEDS ORDERED: Metoprolol Tartrate 25 MG Tablet PO SCH (06:00)
[2017-11-21] MEDS ORDERED: Sodium Chlor 0.9% Inj 500 ML IV.SIG SCH (06:00)
[2017-11-21 08:43] LABS: Baso # (Auto) 0.1 th/mm3 (0.0-0.2); Baso % (Auto) 0.6 % (0.0-2.0); Eos % (Auto) 0.3 % (0.0-4.0); Hematocrit 40.1 % (35.0-46.0); Hemoglobin 13.5 gm/dL (11.6-15.3); Lymph # (Auto) 3.2 th/mm3 (1.0-4.8); Lymph % (Auto) 28.3 % (9.0-44.0); Mean Corpuscular HGB Conc 33.8 % (32.0-36.0); Mean Corpuscular Hemoglobin 30.4 pg (27.0-34.0); Mean Platelet Volume 8.6 fL (7.0-11.0); Mono # (Auto) 0.9 th/mm3 (0.0-0.9); Mono % (Auto) 8.3 % (0.0-8.0); Neut # (Auto) 7.1 th/mm3 (1.8-7.7); Neut % (Auto) 62.5 % (16.0-70.0); Platelet Count 251 th/mm3 (150-450); Red Blood Count 4.45 mil/mm3 (4.00-5.30); Red Cell Distribution Width 13.4 % (11.6-17.2); White Blood Count 11.4 th/mm3 (4.0-11.0)
[2017-11-21 08:47] LABS: Prothrombin Time 10.6 sec (9.8-11.6)
[2017-11-21 09:17] LABS: Alanine Aminotransferase 33 U/L (10-53); Albumin 3.7 g/dL (3.4-5.0); Alkaline Phosphatase 94 U/L (45-117); Anion Gap 10 meq/L (5-15); Aspartate Aminotransferase 27 U/L (15-37); Blood Urea Nitrogen 8 mg/dL (7-18); Calcium 8.8 mg/dL (8.5-10.1); Carbon Dioxide 23.1 meq/L (21.0-32.0); Chloride 107 meq/L (98-107); Chol/HDL Ratio 3.88 Ratio; Cholesterol 203 mg/dL (120-200); Free T4 (Free Thyroxine) 1.01 ng/dL (0.76-1.46); Glomerular Filtration Rate Greater Than 89 mL/min (>89); Glucose,Random 115 mg/dL (74-106); HDL Cholesterol 52.2 mg/dL (40.0-60.0); LDL Cholesterol,Calculated 112 mg/dL (0-99); Magnesium 2.4 mg/dL (1.5-2.5); Potassium 3.6 meq/L (3.5-5.1); Sodium 140 meq/L (136-145); Total Protein 6.8 g/dL (6.4-8.2); Triglycerides 192 mg/dL (42-150)
[2017-11-21] MEDS ORDERED: Lidocaine PF 1% Inj 5 ML Syringe INFILTRATN ONE (12:00)
--- NOTE | 2017-11-21 12:57 | GIPROC ---
[facility] [address] [facility] [facility], [address] EGD PROCEDURE REPORT EXAM DATE: 11/21/2017 PATIENT NAME: Penny Anne MR #: [id number] BIRTHDATE: 1965 ATTENDING: Romina Acuna MD ORDER #: [id number] [employer] SUPERINTENDENT: Jose Newman and Juju Walker STATUS: inpatient INDICATIONS: The patient is a 52 yr old female here for an EGD due to anemia and hematemesis PROCEDURE PERFORMED: EGD w/ biopsy MEDICATIONS: None and Per Anesthesia. TOPICAL ANESTHETIC: none CONSENT: The patient understands the risks and benefits of the procedure and understands that these risks include, but are not limited to: sedation, allergic reaction, infection, perforation and/or bleeding. Alternative means of evaluation and treatment include, among others: physical exam, x-rays, and/or surgical intervention. The patient elects to proceed with this endoscopic procedure. medical equipment was checked for proper function. Hand hygiene and appropriate measures for infection prevention was taken. After the risks, benefits and alternatives of the procedure were thoroughly explained, Informed consent was verified, confirmed and timeout was successfully executed by the treatment team. The patient was anesthetized with topical anesthesia and the Pentax EG-[id number] endoscope was introduced through the mouth and advanced to the second portion of the duodenum. Retroflexion was performed and was normal The gastroscope was then slowly withdrawn and removed. ESOPHAGUS: There was LA Class A esophagitis noted. STOMACH: Multiple large shallow and irregular shaped erosions were found in the gastric body. Multiple biopsies was performed using cold forceps. Sample sent for histology. DUODENUM: Mild duodenal inflammation was found in the duodenal bulb. ADVERSE EVENTS: There were no complications. IMPRESSIONS: 1. There was LA Class A esophagitis noted 2. Multiple large erosions were found in the gastric body; multiple biopsies was performed 3. Duodenal inflammation was found in the duodenal bulb 4. Retroflexion was performed and was normal RECOMMENDATIONS: 1. Continue PPI 2. Avoid NSAIDS 3. Await biopsy results. Biopsy results will not be ready for 7-10 days. If you don't hear from us in two weeks, call our office for biopsy results. PATIENT CONDITION: stable DISPOSITION: Observation REPEAT EXAM: NONE Romina Acuna MD eSigned: Romina Acuna MD 11/21/2017 12:56 PM cc: PATIENT NAME: Penny Anne MR#: [id number]
--- NOTE | 2017-11-21 13:11 | P.PNIM ---
Physical Exam Vital signs: Vital Signs 11/20/17 14:20 11/20/17 16:00 11/20/17 20:00 Temperature 99.1 F 98.3 F Pulse Rate 72 103 H 111 H Respiratory Rate 20 16 16 Blood Pressure 168/79 H 121/65 140/84 Pulse Oximetry 99 95 97 11/20/17 20:30 11/20/17 23:17 11/21/17 04:00 Temperature 98.6 F 98.4 F Pulse Rate 94 H 89 Respiratory Rate 18 18 16 Blood Pressure 119/56 L 117/69 Pulse Oximetry 97 95 11/21/17 08:00 Temperature 97.5 F L Pulse Rate 80 Respiratory Rate 20 Blood Pressure 136/76 Pulse Oximetry 97 Intake & Output 11/20/17 11/21/17 11/21/17 18:59 06:59 18:59 Intake Total 1150 / 1150 200 / 200 Balance 1150 / 1150 200 / 200 Weight 65.771 kg Intake: IV 1150 / 1150 200 / 200 Protonix Inj 80 MG In NS Inj 100 / 100 100 ML @ 10 mls/hr IV.CONT CONT MARIANNA Rx#:[id number] KCl 10 mEq Premix Inj 10 meq In 150 / 150 100 ml @ 100 mls/hr IV.SIG Q1H MARIANNA Rx#:[id number] NS Inj 1,000 ML @ Wide Open IV. 1000 / 1000 SIG BOLUS ONE Rx#:[id number] Results - Labs CBC & Chem 7: 11/21/17 07:13 11/21/17 07:13 Laboratory Results - last 24 hr 11/20/17 11/20/17 11/21/17 17:00 21:29 07:13 WBC 11.4 H RBC 4.45 Hgb 13.7 13.7 13.5 Hct 40.7 40.2 40.1 MCV 90.0 MCH 30.4 MCHC 33.8 RDW 13.4 Plt Count 251 MPV 8.6 Neut % (Auto) 62.5 Lymph % (Auto) 28.3 [place] % (Auto) 8.3 H Eos % (Auto) 0.3 Baso % (Auto) 0.6 Neut # (Auto) 7.1 Lymph # (Auto) 3.2 [place] # (Auto) 0.9 Eos # (Auto) 0.0 Baso # (Auto) 0.1 WBC Differential . Differential Comment Auto diff final PT INR Sodium Potassium Chloride Carbon Dioxide Anion Gap BUN Creatinine Estimated GFR Random Glucose Calcium Phosphorus Magnesium Total Bilirubin AST ALT Alkaline Phosphatase Total Protein Albumin Triglycerides Cholesterol LDL Cholesterol, Calc HDL Cholesterol Cholesterol/HDL Ratio Free T4 11/21/17 11/21/17 07:13 07:13 WBC RBC Hgb Hct MCV MCH MCHC RDW Plt Count MPV Neut % (Auto) Lymph % (Auto) [place] % (Auto) Eos % (Auto) Baso % (Auto) Neut # (Auto) Lymph # (Auto) [place] # (Auto) Eos # (Auto) Baso # (Auto) WBC Differential Differential Comment PT 10.6 INR 1.0 Sodium 140 Potassium 3.6 Chloride 107 Carbon Dioxide 23.1 Anion Gap 10 BUN 8 Creatinine 0.62 Estimated GFR Greater than 89 Random Glucose 115 H Calcium 8.8 D Phosphorus 2.0 L Magnesium 2.4 D Total Bilirubin 1.3 H AST 27 ALT 33 Alkaline Phosphatase 94 Total Protein 6.8 D Albumin 3.7 Triglycerides 192 H Cholesterol 203 H LDL Cholesterol, Calc 112 H HDL Cholesterol 52.2 Cholesterol/HDL Ratio 3.88 Free T4 1.01 - Imaging Impressions Abdomen/Pelvis CT 11/20/17 13:04 CONCLUSION: 1. Mild colonic diverticulosis. 2. Small hiatal hernia. 3. No acute abnormality.
[2017-11-21] MEDS ORDERED: Metoprolol Inj 5 MG/5 ML Vial IV.PUSH PRN (14:02)
[2017-11-21] MEDS: Morphine Inj 4 MG/ML Vial IV.PUSH PRN (15:37)
[2017-11-21 16:09] LABS: Hemoglobin A1c 5.4 % (4.3-6.0)
[2017-11-21] MEDS: Senna/Docusate Sodium 8.6/50 MG Tablet PO SCH ×2 (17:06→23:10)
[2017-11-21] MEDS ORDERED: Haloperidol Inj 5 MG/ML Ampul IV.PUSH PRN (17:19)
[2017-11-21] MEDS ORDERED: LORazepam 1 MG Tablet PO PRN (17:19)
--- NOTE | 2017-11-21 17:23 | P.PN ---
Subjective Interval history: Follow up for abdominal pain, nausea/vomiting. The patient is seen shortly after her EGD. She reports after the procedure, she had increased epigastric pain with nausea/vomiting, however now relieved by antiemetics and IV morphine. She has not yet attempted oral intake. She reports a semi formed nonbloody stool just prior to her EGD today. Denies any other medical complaints at this time. Physical Exam Vital signs: Vital Signs 11/20/17 20:00 11/20/17 20:30 11/20/17 23:17 Temperature 98.3 F 98.6 F Pulse Rate 111 H 94 H Respiratory Rate 16 18 18 Blood Pressure 140/84 119/56 L Pulse Oximetry 97 97 11/21/17 04:00 11/21/17 08:00 11/21/17 14:25 Temperature 98.4 F 97.5 F L Pulse Rate 89 80 71 Respiratory Rate 16 20 Blood Pressure 117/69 136/76 183/90 H Pulse Oximetry 95 97 11/21/17 14:35 11/21/17 14:40 11/21/17 14:46 Temperature Pulse Rate 68 68 71 Respiratory Rate Blood Pressure 186/90 H 196/94 H Pulse Oximetry 11/21/17 14:51 11/21/17 15:58 Temperature 98.6 F Pulse Rate 66 20 L Respiratory Rate Blood Pressure 198/97 H 188/88 H Pulse Oximetry Intake & Output 11/20/17 11/21/17 11/21/17 18:59 06:59 18:59 Intake Total 1150 / 1150 200 / 200 400 / 400 Output Total Balance 1150 / 1150 200 / 200 399 / 399 Weight 65.771 kg 66.7 kg Intake: IV 1150 / 1150 200 / 200 Protonix Inj 80 MG In NS Inj 100 / 100 100 ML @ 10 mls/hr IV.CONT CONT MARIANNA Rx#:[id number] KCl 10 mEq Premix Inj 10 meq In 150 / 150 100 ml @ 100 mls/hr IV.SIG Q1H MARIANNA Rx#:[id number] NS Inj 1,000 ML @ Wide Open IV. 1000 / 1000 SIG BOLUS ONE Rx#:[id number] Anesthesia Amount 400 / 400 Output: Urine Other: Weight On Admission 66.7 kg Narrative: GENERAL: Well-nourished, well-developed middle aged female patient in NAD. SKIN: Warm and dry. No rash. HEENT: Normocephalic. Atraumatic. Pupils equal and round. Mucous membranes pink and moist. CARDIOVASCULAR: Regular rate and rhythm. No murmur appreciated. RESPIRATORY: No accessory muscle use. Clear to auscultation. Breath sounds equal bilaterally. GASTROINTESTINAL: Abdomen soft, nondistended, mild epigastric tenderness to palpation. Normoactive bowel sounds x4. MUSCULOSKELETAL: No obvious deformities. Extremities without clubbing, cyanosis , or edema. NEUROLOGICAL: Awake and alert. No obvious cranial nerve deficits. Moving all extremities spontaneously. Normal speech. PSYCHIATRIC: Appropriate mood and affect; insight and judgment normal. Results - Labs CBC & Chem 7: 11/21/17 07:13 11/21/17 07:13 Laboratory Results - last 24 hr 11/20/17 11/20/17 11/21/17 17:00 21:29 07:13 WBC 11.4 H RBC 4.45 Hgb 13.7 13.7 13.5 Hct 40.7 40.2 40.1 MCV 90.0 MCH 30.4 MCHC 33.8 RDW 13.4 Plt Count 251 MPV 8.6 Neut % (Auto) 62.5 Lymph % (Auto) 28.3 [place] % (Auto) 8.3 H Eos % (Auto) 0.3 Baso % (Auto) 0.6 Neut # (Auto) 7.1 Lymph # (Auto) 3.2 [place] # (Auto) 0.9 Eos # (Auto) 0.0 Baso # (Auto) 0.1 WBC Differential . Differential Comment Auto diff final PT INR Sodium Potassium Chloride Carbon Dioxide Anion Gap BUN Creatinine Estimated GFR Random Glucose Calcium Phosphorus Magnesium Total Bilirubin AST ALT Alkaline Phosphatase Total Protein Albumin Triglycerides Cholesterol LDL Cholesterol, Calc HDL Cholesterol Cholesterol/HDL Ratio Free T4 11/21/17 11/21/17 07:13 07:13 WBC RBC Hgb Hct MCV MCH MCHC RDW Plt Count MPV Neut % (Auto) Lymph % (Auto) [place] % (Auto) Eos % (Auto) Baso % (Auto) Neut # (Auto) Lymph # (Auto) [place] # (Auto) Eos # (Auto) Baso # (Auto) WBC Differential Differential Comment PT 10.6 INR 1.0 Sodium 140 Potassium 3.6 Chloride 107 Carbon Dioxide 23.1 Anion Gap 10 BUN 8 Creatinine 0.62 Estimated GFR Greater than 89 Random Glucose 115 H Calcium 8.8 D Phosphorus 2.0 L Magnesium 2.4 D Total Bilirubin 1.3 H AST 27 ALT 33 Alkaline Phosphatase 94 Total Protein 6.8 D Albumin 3.7 Triglycerides 192 H Cholesterol 203 H LDL Cholesterol, Calc 112 H HDL Cholesterol 52.2 Cholesterol/HDL Ratio 3.88 Free T4 1.01 - Procedures 11/21/17 - EGD by Dr. Acuna: 1. There was LA Class A esophagitis noted 2. Multiple large erosions were found in the gastric body; multiple biopsies was performed 3. Duodenal inflammation was found in the duodenal bulb 4. Retroflexion was performed and was normal Assessment and Plan - Plan 52-year-old female who has a history of gastric ulcers presented to the emergency department complaining of abdominal pain in the midepigastric region and hematemesis Hematemesis/Epigastric Pain: acute -CT abd/pelvis reviewed, shows mild colonic diverticulosis; small hiatal hernia; no other acute abnormality -Patient with history of ulcers, started on IV Protonix drip -Supportive treatment with IVF, antiemetics, and pain control with percocet prn and IV morphine prn -Trend H&H, Hgb stable at 13.5 -GI consulted -EGD 11/21 showed esophagitis; multiple large erosions in the gastric body; duodenal inflammation -Diet advanced Hypokalemia: K 3.2, suspect secondary to vomiting -give IV KCl replacement -repeat labs show improvement with K 3.6 Leukocytosis: WBC 14.4, suspect reactive secondary to vomiting. Afebrile. -give supportive treatment with IVF -repeat labs show improvement with WBC 11.4 Tobacco abuse: chronic -counseled on cessation Alcohol abuse: chronic -counseled on cessation -[facility] protocol -thiamine/folate/MV -monitor for withdrawal DVT prophylaxis: teds/SCDs; avoid chemoprophylaxis with GI bleeding Discharge Planning: Discharge when tolerating oral intake and cleared by GI.
[2017-11-21] MEDS: Pantoprazole Inj 40 MG Vial IV.PUSH SCH (20:11)
[2017-11-21] MEDS: KCL 20 mEq/D5W/NaCl 0.45% Inj 1,000 ML IV.CONT SCH ×3 (20:13→23:11)
--- NOTE | 2017-11-22 08:34 | P.PN ---
Subjective Interval history: Follow up for esophagitis, gastric ulcers, abdominal pain, nausea/vomiting. The patient reports feeling slightly better today. No further vomiting. Mild epigastric pain, however improved. She tolerated only small amount of broth and popsicle last night. Has not yet attempted breakfast. She reports a headache which she feels will improve if she is able to eat. Denies fevers/chills. Has not had a BM since a small soft BM prior to her procedure yesterday. She is hoping to go home today. Physical Exam Vital signs: Vital Signs 11/21/17 14:25 11/21/17 14:35 11/21/17 14:40 Temperature Pulse Rate 71 68 68 Respiratory Rate Blood Pressure 183/90 H 186/90 H 196/94 H Pulse Oximetry 11/21/17 14:46 11/21/17 14:51 11/21/17 15:58 Temperature 98.6 F Pulse Rate 71 66 20 L Respiratory Rate Blood Pressure 198/97 H 188/88 H Pulse Oximetry 11/21/17 20:00 11/21/17 21:00 11/21/17 23:09 Temperature 98.5 F Pulse Rate 72 75 Respiratory Rate 18 16 Blood Pressure 175/83 H 122/66 Pulse Oximetry 96 11/21/17 23:39 11/22/17 04:00 Temperature 99.9 F H 98.3 F Pulse Rate 85 70 Respiratory Rate 16 16 Blood Pressure 142/68 H 130/73 Pulse Oximetry 96 96 Intake & Output 11/21/17 11/22/17 11/22/17 18:59 06:59 18:59 Intake Total 400 / 400 Output Total Balance 399 / 399 Weight 66.7 kg Intake: Anesthesia Amount 400 / 400 Output: Urine Other: Weight On Admission 66.7 kg Narrative: GENERAL: Well-nourished, well-developed middle aged female patient in [facility]. SKIN: Warm and dry. No rash. HEENT: Normocephalic. Atraumatic. Pupils equal and round. Mucous membranes pink and moist. CARDIOVASCULAR: Regular rate and rhythm. No murmur appreciated. RESPIRATORY: No accessory muscle use. Clear to auscultation. Breath sounds equal bilaterally. GASTROINTESTINAL: Abdomen soft, nondistended, nontender today. Normoactive bowel sounds x4. MUSCULOSKELETAL: No obvious deformities. Extremities without clubbing, cyanosis , or edema. NEUROLOGICAL: Awake and alert. No obvious cranial nerve deficits. Moving all extremities spontaneously. Normal speech. PSYCHIATRIC: Appropriate mood and affect; insight and judgment normal. Results - Labs CBC & Chem 7: 11/21/17 07:13 11/21/17 07:13 Laboratory Results - last 24 hr 11/21/17 11/21/17 11/21/17 07:13 07:13 07:13 WBC 11.4 H RBC 4.45 Hgb 13.5 Hct 40.1 MCV 90.0 MCH 30.4 MCHC 33.8 RDW 13.4 Plt Count 251 MPV 8.6 Neut % (Auto) 62.5 Lymph % (Auto) 28.3 Pickett % (Auto) 8.3 H Eos % (Auto) 0.3 Baso % (Auto) 0.6 Neut # (Auto) 7.1 Lymph # (Auto) 3.2 Pickett # (Auto) 0.9 Eos # (Auto) 0.0 Baso # (Auto) 0.1 WBC Differential . Differential Comment Auto diff final PT 10.6 INR 1.0 Sodium 140 Potassium 3.6 Chloride 107 Carbon Dioxide 23.1 Anion Gap 10 BUN 8 Creatinine 0.62 Estimated GFR Greater than 89 Random Glucose 115 H Hemoglobin A1c Calcium 8.8 D Phosphorus 2.0 L Magnesium 2.4 D Total Bilirubin 1.3 H AST 27 ALT 33 Alkaline Phosphatase 94 Total Protein 6.8 D Albumin 3.7 Triglycerides 192 H Cholesterol 203 H LDL Cholesterol, Calc 112 H HDL Cholesterol 52.2 Cholesterol/HDL Ratio 3.88 Free T4 1.01 11/21/17 07:13 WBC RBC Hgb Hct MCV MCH MCHC RDW Plt Count MPV Neut % (Auto) Lymph % (Auto) Pickett % (Auto) Eos % (Auto) Baso % (Auto) Neut # (Auto) Lymph # (Auto) Pickett # (Auto) Eos # (Auto) Baso # (Auto) WBC Differential Differential Comment PT INR Sodium Potassium Chloride Carbon Dioxide Anion Gap BUN Creatinine Estimated GFR Random Glucose Hemoglobin A1c 5.4 Calcium Phosphorus Magnesium Total Bilirubin AST ALT Alkaline Phosphatase Total Protein Albumin Triglycerides Cholesterol LDL Cholesterol, Calc HDL Cholesterol Cholesterol/HDL Ratio Free T4 - Procedures 11/21/17 - EGD by Dr. Acuna: 1. There was LA Class A esophagitis noted 2. Multiple large erosions were found in the gastric body; multiple biopsies was performed 3. Duodenal inflammation was found in the duodenal bulb 4. Retroflexion was performed and was normal Assessment and Plan - Plan 52-year-old female who has a history of gastric ulcers presented to the emergency department complaining of abdominal pain in the midepigastric region and hematemesis Hematemesis/Epigastric Pain: acute -CT abd/pelvis reviewed, shows mild colonic diverticulosis; small hiatal hernia; no other acute abnormality -Patient with history of ulcers, started on IV Protonix drip -Supportive treatment with IVF, antiemetics, and pain control with percocet prn and IV morphine prn -Trend H&H, Hgb stable at 13.5 -GI consulted, appreciate assistance -EGD 11/21 showed esophagitis; multiple large erosions in the gastric body; duodenal inflammation -started on carafate tidac -Diet advanced Hypokalemia: K 3.2, suspect secondary to vomiting -give IV KCl replacement -repeat labs show improvement with K 3.6 Leukocytosis: WBC 14.4, suspect reactive secondary to vomiting. Afebrile. -give supportive treatment with IVF -repeat labs show improvement with WBC 11.4 Tobacco abuse: chronic -counseled on cessation Alcohol abuse: chronic -counseled on cessation -[facility] protocol -thiamine/folate/MV -no signs of withdrawal at this time DVT prophylaxis: teds/SCDs; avoid chemoprophylaxis with GI bleeding Discharge Planning: Discharge when tolerating oral intake and cleared by GI. 1530hrs: Patient tolerated breakfast and lunch today. Wants to go home. Will discharge when cleared by GI. Discharge patient to home Condition on discharge: Stable Regular/Soft diet as tolerated Ad Miryam activity Rx written: Protonix, Carafate Follow-up with primary care physician and gastroenterology
[2017-11-22] MEDS: Pantoprazole Inj 40 MG Vial IV.PUSH SCH (08:54)
[2017-11-22] MEDS: KCL 20 mEq/D5W/NaCl 0.45% Inj 1,000 ML IV.CONT SCH (08:55)
[2017-11-22] MEDS: Senna/Docusate Sodium 8.6/50 MG Tablet PO SCH (08:57)
[2017-11-22] MEDS ORDERED: Folic Acid 1 MG Tablet PO SCH (09:00)
[2017-11-22] MEDS ORDERED: Multivitamin/Minerals Therapeutic Tablet PO SCH (09:00)
[2017-11-22] MEDS ORDERED: Sucralfate Liq 1 GM/10 ML UDC PO SCH (12:00)
--- NOTE | 2017-11-22 16:15 | P.PNGI ---
Subjective Interval history: Patient is feeling much better today was able to eat lunch Did denies any nausea or vomiting or abdominal pain Denies any gastric pain at rest. Afebrile, current hemoglobin 13.5 <Pau Delacruz - Last Filed: 11/22/17 16:07> Physical Exam Vital signs: Vital Signs 11/21/17 20:00 11/21/17 21:00 11/21/17 23:09 Temperature 98.5 F Pulse Rate 72 75 Respiratory Rate 18 16 Blood Pressure 175/83 H 122/66 Pulse Oximetry 96 11/21/17 23:39 11/22/17 04:00 11/22/17 08:00 Temperature 99.9 F H 98.3 F 97.7 F Pulse Rate 85 70 68 Respiratory Rate 16 16 18 Blood Pressure 142/68 H 130/73 154/74 H Pulse Oximetry 96 96 96 11/22/17 12:00 11/22/17 14:15 Temperature 97.6 F 98.2 F Pulse Rate 80 82 Respiratory Rate 18 16 Blood Pressure 99/59 L 137/76 Pulse Oximetry 93 L 87 L Intake & Output 11/21/17 11/22/17 11/22/17 18:59 06:59 18:59 Intake Total 400 / 400 965 / 965 Output Total / Balance 399 / 399 965 / 965 Weight 66.7 kg Intake: IV 965 / 965 D5W/1/2NS + KCL 20 mEq Inj 1, 965 / 965 000 ML @ 100 mls/hr IV.CONT . Q10H [facility] Rx#:[id number] Anesthesia Amount 400 / 400 Output: Urine Other: Weight On Admission 66.7 kg - Constitutional no acute distress - Routine HEENT Exam Head: Present: normocephalic, atraumatic Eye: Present: EOMI ENT: Present: mucous membranes moist - Routine Neck Exam Present: supple - Routine Respiratory Exam Present: CTA bilaterally - Routine Cardiovascular Exam Present: RRR (Even, unlabored) - Routine Abdominal Exam Present: soft, normoactive bowel sounds, tenderness (Minimal, no distention) - Routine Skin Exam Present: intact - Routine Neurological Exam Present: alert - Detailed Neurological Exam: Coma Scale Verbal Response: Oriented - Routine Psychiatric Exam Present: normal affect <Pau Delacruz - Last Filed: 11/22/17 16:07> Vital signs: Vital Signs 11/21/17 23:09 11/21/17 23:39 11/22/17 04:00 Temperature 99.9 F H 98.3 F Pulse Rate 75 85 70 Respiratory Rate 16 16 Blood Pressure 122/66 142/68 H 130/73 Pulse Oximetry 96 96 11/22/17 08:00 11/22/17 12:00 11/22/17 14:15 Temperature 97.7 F 97.6 F 98.2 F Pulse Rate 68 80 82 Respiratory Rate 18 18 16 Blood Pressure 154/74 H 99/59 L 137/76 Pulse Oximetry 96 93 L 87 L Intake & Output 11/22/17 11/22/17 11/23/17 06:59 18:59 06:59 Intake Total 965 / 965 Balance 965 / 965 Intake: IV 965 / 965 D5W/1/2NS + KCL 20 mEq Inj 1, 965 / 965 000 ML @ 100 mls/hr IV.CONT . Q10H [facility] Rx#:[id number] <Romina Acuna - Last Filed: 11/22/17 21:10> Results - Labs CBC & Chem 7: 11/21/17 07:13 11/21/17 07:13 Laboratory Results - last 24 hr 11/21/17 07:13 Hemoglobin A1c 5.4 - Procedures 11/21/17 - EGD by Dr. Acuna: 1. There was LA Class A esophagitis noted 2. Multiple large erosions were found in the gastric body; multiple biopsies was performed 3. Duodenal inflammation was found in the duodenal bulb 4. Retroflexion was performed and was normal <Pau Delacruz - Last Filed: 11/22/17 16:07> - Labs CBC & Chem 7: 11/21/17 07:13 11/21/17 07:13 <Romina Acuna - Last Filed: 11/22/17 21:10> Assessment and Plan - Plan Assessment: - Epigastric pain with reports of hematemesis with known history of severe esophagitis Epigastric pain began yesterday afternoon, aching, constant pain, denies radiation, denies aggravating or alleviating factors. Took Tums with no relief. Associated nausea and vomiting that began at 3 am, initially hematemesis but reports now just small amounts of BRB mixed in. Denies coffee ground emesis. Denies changes in bowel habits but has not had BM since vomiting began. H/H stable 15.1/44.2 Occasional ETOH. Denies nicotine use. Admits to marijuana. Takes [facility] headache medicine (unsure if this is Acetaminophen or Ibuprofen) approximately once a week. Not on blood thinners EGD (july 2012) --> Severe esophagitis LA grade 4, duodenitis 11/22/2017 patient is status post EGD on 11/21/2017 results include esophagitis, large gastric erosions and duodenal inflammation. Note CT scan reviewed which showed mild diverticulosis, hiatal hernia, otherwise unremarkable. Patient states she is feeling much better today and he is asymptomatic from any of her hematemesis or GI bleeding. Current hemoglobin 13.5 and 17 in 2018. IV fluids infusing at 75 an hour but patient is taking p.o. fluids well so they should be able to be DC'd. Discussed with patient the abstinence of alcohol or any tobacco and patient agreed with this plan. Discussed soft diet with nongreasy foods heart healthy. Patient has been up ambulating without any distress. Cleared per GI and will need to follow-up in the office in 2-4 weeks, advanced GI group Plan: Diet soft as tolerated, avoid spicy food PPI Avoid NSAIDs Alcohol abstinence Antireflux regimen, chew food well, no eating late at night Follow-up in the GI office in 2-4 weeks Pt has been seen and examined by myself and Dr. Acuna and this note is written on his behalf <Pau Delacruz - Last Filed: 11/22/17 16:07> - Attending Attestation As above, will need out patient follow up for biopsies results. <Romina Acuna - Last Filed: 11/22/17 21:10>
--- NOTE | 2017-11-28 16:52 | ECG ---
Date Performed: 11/21/2017 Time Performed: 05:56:15 PTAGE: 52 years EKG: Sinus rhythm NORMAL ECG NO PREVIOUS TRACING DOCTOR: Nirmal Ferreira Interpretating Date/Time 11/28/2017 16:52:00
== END 2017-11-22 16:46 | disposition home or self-care (01) ==
LOC: NEPFCDU 10:06 → NEDA 10:06 → NEPC 10:06 → NEDA 15:05 → NEPFCDU 15:10 → N04 16:31 → NEPFCDU 16:32 → N04 16:39 → NEPFCDU 16:43
PROVIDERS: ADMIT Family Medicine; ATTEND Family Medicine